=== PATIENT | male | born 1965 ===

== ENCOUNTER 2017-02-01 11:39 | Day surgery (SDC) | payer OTHER, BC ==
[2017-01-24 12:02] VITALS: BMI 24.7
[2017-02-01] MEDS ORDERED: Propofol 10 mg/ml Inj (20 ML) ONE (12:42)
[2017-02-01 13:41] VITALS: TEMP 98
[2017-02-01] MEDS ORDERED: Sodium Chloride 0.9% 1,000 ML IV SCH (13:45)
[2017-02-01 14:32] VITALS: BP 125/74; PULSE 71; RESP 16; O2SAT 100
== END 2017-02-01 14:44 | disposition home or self-care (01) ==
LOC: ENDO 11:39
PROVIDERS: ATTEND Internal Medicine
DX: R10.9 Unspecified abdominal pain (principal); D12.2 Benign neoplasm of ascending colon; D12.3 Benign neoplasm of transverse colon; K64.8 Other hemorrhoids
CPT/HCPCS: 45380; 88305; J2001; J2704; J7040